=== PATIENT | male | born 1995 | race Hispanic/Latino ===

== ENCOUNTER 2017-06-19 21:35 | Emergency (ER) | payer OTHER ==
--- NOTE | 2017-06-19 22:59 | ED PDOC ---
HPI: Psych/Substance Abuse Time Seen by Provider: 06/19/17 22:01 Chief Complaint (Nursing): Psychiatric Evaluation Chief Complaint (Provider): pysch eval Suicide/Self Injury Attempted (Context): None Associated Symptoms: denies: Anger, Anxiety, Agitation, Depression, Paranoia, Suicidal Thoughts, Suicidal Plan Additional Complaint(s): 22yo M in ED -sent by Police for evaluation. a missing report was filed by pts parents x 6 months. Pt is from [place], drove in his car and states he is traveling [place] and [place] to visit. Pt admits he is schizophrenic and is not taking medication. Pt denies HI/SI/hallucinations. Past Medical History Reviewed: Historical Data, Nursing Documentation, Vital Signs Vital Signs: Last Vital Signs Temp 97.2 F L 06/19/17 21:38 Pulse 113 H 06/19/17 21:38 Resp 18 06/19/17 21:38 BP 120/77 06/19/17 21:38 Pulse Ox 100 06/19/17 21:38 - Medical History PMH: No Chronic Diseases - Family History Family History: States: No Known Family Hx - Allergies Allergies/Adverse Reactions: Allergies Allergy/AdvReac Type Severity Reaction Status Date / Time pine nut Allergy SHORTNESS Verified 06/19/17 21:38 OF BREATH Review of Systems ROS Statement: Except As Marked, All Systems Reviewed And Found Negative Constitutional: Negative for: Fever, Chills Psych: Negative for: Anxiety, Depression, Psychosis, Suicidal ideation, Withdrawal Physical Exam - Reviewed Nursing Documentation Reviewed: Yes Vital Signs Reviewed: Yes - Physical Exam Appears: Positive for: Well, Non-toxic, No Acute Distress Head Exam: Positive for: ATRAUMATIC, NORMAL INSPECTION, NORMOCEPHALIC Skin: Positive for: Normal Color, Warm, DRY Eye Exam: Positive for: Normal appearance, EOMI, PERRL ENT: Positive for: Normal ENT Inspection Cardiovascular/Chest: Positive for: Regular Rate, Rhythm Respiratory: Positive for: CNT, Normal Breath Sounds Gastrointestinal/Abdominal: Positive for: Normal Exam, Bowel Sounds, Soft. Negative for: Tenderness Neurologic/Psych: Positive for: Alert, Oriented, Mood/Affect (normal affect). Negative for: klystrom tube tester II-XII - Laboratory Results Result Diagrams: 06/19/17 23:38 06/19/17 23:38 - ECG O2 Sat by Pulse Oximetry: 100 - Progress ED Course And Treament: Pt will be evaluated by crisis. placed on 1:1. according to crisis-mother was contacted and will come to see pt in the AM. Mother driving from [place]. Medical Decision Making Medical Decision Making: Pt is medically cleared for [facility] screening. 05:22 [facility] screening pt. pending [facility] disposition. Disposition - Clinical Impression Clinical Impression: Schizophrenia - Patient ED Disposition Is Patient to be Admitted: Transfer of Care - Disposition Disposition Time: 06:00 Condition: STABLE Forms: [employer] (Faroese)
[2017-06-19 23:41] LABS: BASO % 0.4 % (0.0-2.0); EOS # 0.1 K/uL (0.0-0.7); EOS % 1.2 % (0.0-4.0); HEMATOCRIT 47.2 % (35.0-51.0); LYMPH # 1.5 K/uL (1.0-4.3); LYMPH % 18.6 % (20.0-40.0); MEAN CELL VOLUME 90.3 fl (80.0-94.0); MEAN CORPUSCULAR HEMOGLOBIN 31.6 pg (27.0-31.0); MEAN PLATELET VOLUME 8.9 fl (7.2-11.7); MONO # 0.8 K/uL (0.0-0.8); MONO % 9.4 % (0.0-10.0); NEUT # 5.8 K/uL (1.8-7.0); NEUT % 70.4 % (50.0-75.0); NRBC % 0.1 % (0.0-0.0); RED CELL DISTRIBUTION WIDTH 13.8 % (11.5-14.5); WHITE BLOOD COUNT 8.2 K/uL (4.8-10.8)
[2017-06-19 23:57] LABS: ALB/GLOB RATIO 1.5 (1.0-2.1); ALCOHOL SERUM < 10 mg/dl (0-10); ALKALINE PHOSPHATASE 81 U/L (38-126); ALT/SGPT 17 U/L (21-72); AST/SGOT 25 U/L (17-59); BILIRUBIN,TOTAL 2.2 mg/dl (0.2-1.3); BLOOD UREA NITROGEN 16 mg/dl (9-20); CALCIUM 9.7 mg/dL (8.4-10.2); CARBON DIOXIDE 21 mmol/L (22-30); CHLORIDE 100 mmol/L (98-107); GFR AFRICAN-AMERICAN > 60; GLUCOSE,RANDOM 84 mg/dL (75-110); POTASSIUM 3.9 MMOL/L (3.6-5.0); SODIUM 141 mmol/l (132-148); TOTAL PROTEIN 8.6 G/DL (6.3-8.2)
[2017-06-20] LABS: RBC URINE 3 /hpf (0-3); URINE BILIRUBIN NEGATIVE (NEGATIVE); URINE BLOOD SMALL (NEGATIVE); URINE COLOR YELLOW (YELLOW); URINE GLUCOSE (UA) NEG (Normal); URINE KETONE 80 mg/dL (NEGATIVE); URINE LEUKOCYTE ESTERASE NEG Leu/uL (Negative); URINE PROTEIN 100 mg/dL (NEGATIVE); WBC URINE 4 /hpf (0-5)
--- NOTE | 2017-06-20 06:54 | ED PDOC ---
- Laboratory Results Result Diagrams: 06/19/17 23:38 06/19/17 23:38 - ECG O2 Sat by Pulse Oximetry: 100 Medical Decision Making Medical Decision Makin Patient signed out to me from ALEJO Bhatti pending [facility] bed availability. 0700 Patient will be signed out to Dr. De La Vega pending [facility] bed availability. Scribe Attestation: Documented by Ebonie De La Cruz acting as a scribe for Ousmane Ortega MD. Scribe Attestation: All medical record entries made by the Scribe were at my direction and personally dictated by me. I have reviewed the chart and agree that the record accurately reflects my personal performance of the history, physical exam, medical decision making, and the department course for this patient. I have also personally directed, reviewed, and agree with the discharge instructions and disposition. Disposition - Clinical Impression Clinical Impression: Schizophrenia - Disposition Condition: STABLE Forms: [employer] (Guyanese) Patient Signed Over To: Nicole De La Vega (at 0700) Handoff Comments: pending [facility] bed availability
--- NOTE | 2017-06-20 08:27 | RAD ---
HISTORY: Medical clearance COMPARISON: No prior. FINDINGS: LUNGS: No active pulmonary disease. PLEURA: No significant pleural effusion identified, no pneumothorax apparent. CARDIOVASCULAR: Normal. OSSEOUS STRUCTURES: No significant abnormalities. VISUALIZED UPPER ABDOMEN: Normal. OTHER FINDINGS: None. IMPRESSION: No active disease.
--- NOTE | 2017-06-20 12:08 | CARD ---
APPROVED REPORT EKG Measurement Heart [id number] <Conclusion> Normal sinus rhythm Normal ECG
[2017-06-20 17:42] VITALS: RESP 18; TEMP 98.2
[2017-06-20 22:47] VITALS: BP 115/69; PULSE 85; O2SAT 99
== END 2017-06-20 23:20 | disposition home or self-care (01) ==
LOC: H.ER 21:35
DX: F20.9 Schizophrenia, unspecified (principal)